=== PATIENT | male | born 1995 | race Caucasian/White ===

== ENCOUNTER 2019-12-21 20:39 | Emergency (ER) | payer OTHER ==
[2019-12-21] MEDS ORDERED: ACETAMINOPHEN 500 MG TAB ONE (21:34)
[2019-12-21] MEDS ORDERED: NA CHLORIDE 0.9% 2,000 ML ONE (21:37)
[2019-12-21] MEDS ORDERED: NA CHLORIDE 0.9% 500 ML ONE (21:37)
[2019-12-21 22:06] LABS: Absolute Lymphocytes (CBC) 0.9 K/uL (0.7-4.9); Basophils % 0.2 % (0-1.3); Hematocrit 43.1 % (39.6-49.0); Lymphocytes % 7.1 % (15.3-44.8); MPV 9.6 fL (7.6-11.3); RBC Red Blood Cell Count 5.06 M/uL (4.33-5.43)
[2019-12-21 22:08] LABS: ALT/SGPT 48 U/L (12-78); AST/SGOT 36 U/L (15-37); Albumin 3.7 g/dL (3.4-5.0); Alkaline Phosphatase 81 U/L (45-117); Amylase Level 33 U/L (25-115); BUN Blood Urea Nitrogen 15 mg/dL (7-18); Bicarbonate 26 mmol/L (21-32); Bilirubin Direct < 0.1 mg/dL (0-0.2); Bilirubin Total 0.3 mg/dL (0.2-1.0); CKMB Creatine Kinase MB < 1.0 ng/mL (0.3-3.6); Creatine Phosphokinase 188 U/L (39-308); Glucose Level 117 mg/dL (74-106); Lipase 63 U/L (73-393); Protein, Total 8.1 g/dL (6.4-8.2); Sodium Level 137 mmol/L (136-145)
[2019-12-21] MEDS ORDERED: CEFTRIAXONE/SWI 1gm 1 GM/10 ML SYR ONE (22:41)
[2019-12-21 23:04] LABS: Absolute Lymphocytes (CBC) 0.9 K/uL (0.7-4.9); Basophils % 0.3 % (0-1.3); Hematocrit 38.7 % (39.6-49.0); Lymphocytes % 7.3 % (15.3-44.8); RBC Red Blood Cell Count 4.53 M/uL (4.33-5.43)
--- NOTE | 2019-12-22 00:10 | EDPHYS ---
Physician Documentation [facility] Name: Kishor Pereira Age: 24 yrs Sex: Male : 1995 Arrival Date: 12/21/2019 Time: 20:45 Bed 20 Private MD: ED Physician Kevin German HPI: 12/20 21:33 This 24 yrs old Male presents to ER via Ambulatory with complaints of Fever. pkl 21:33 The patient reports fever, with an emergency department temperature of 103.1 degrees pkl Fahrenheit. Onset: The symptoms/episode began/occurred just prior to arrival, 3 hour(s) ago. Associated signs and symptoms: Pertinent positives: nasal congestion, Pertinent negatives: cough, shortness of breath. Patient dental a week ago, just completed a course of antibiotics and was going to start oral steroids tomorrow. Historical: - Allergies: 21:12 No Known Allergies; ca1 - Home Meds: 21:12 None [Active]; ca1 - PMHx: 21:12 None; ca1 - PSHx: 21:12 None; ca1 - Immunization history:: Adult Immunizations up to date. - Social history:: Smoking status: Patient denies any tobacco usage or history of. ROS: 21:33 Eyes: Negative for injury, pain, redness, and discharge, ENT: Negative for injury, pkl pain, and discharge, Neck: Negative for injury, pain, and swelling, Cardiovascular: Negative for chest pain, palpitations, and edema, Respiratory: Negative for shortness of breath, cough, wheezing, and pleuritic chest pain, Abdomen/GI: Negative for abdominal pain, nausea, vomiting, diarrhea, and constipation, Back: Negative for injury and pain, : Negative for injury, bleeding, discharge, and swelling, MS/Extremity: Negative for injury and deformity, Skin: Negative for injury, rash, and discoloration, Neuro: Negative for headache, weakness, numbness, tingling, and seizure. Exam: 21:38 Head/Face: Normocephalic, atraumatic. Eyes: Pupils equal round and reactive to light, pkl extra-ocular motions intact. Lids and lashes normal. Conjunctiva and sclera are non-icteric and not injected. Cornea within normal limits. Periorbital areas with no swelling, redness, or edema. ENT: Nares patent. No nasal discharge, no septal abnormalities noted. Tympanic membranes are normal and external auditory canals are clear. Oropharynx with no redness, swelling, or masses, exudates, or evidence of obstruction, uvula midline. Mucous membranes moist. Neck: Trachea midline, no thyromegaly or masses palpated, and no cervical lymphadenopathy. Supple, full range of motion without nuchal rigidity, or vertebral point tenderness. No Meningismus. Chest/axilla: Normal chest wall appearance and motion. Nontender with no deformity. No lesions are appreciated. Cardiovascular: Regular rate and rhythm with a normal S1 and S2. No gallops, murmurs, or rubs. Normal PMI, no JVD. No pulse deficits. Respiratory: Lungs have equal breath sounds bilaterally, clear to auscultation and percussion. No rales, rhonchi or wheezes noted. No increased work of breathing, no retractions or nasal flaring. Abdomen/GI: Soft, non-tender, with normal bowel sounds. No distension or tympany. No guarding or rebound. No evidence of tenderness throughout. Back: No spinal tenderness. No costovertebral tenderness. Full range of motion. Skin: Warm, dry with normal turgor. Normal color with no rashes, no lesions, and no evidence of cellulitis. MS/ Extremity: Pulses equal, no cyanosis. Neurovascular intact. Full, normal range of motion. Neuro: Awake and alert, GCS 15, oriented to person, place, time, and situation. Cranial nerves II-XII grossly intact. Motor strength 5/5 in all extremities. Sensory grossly intact. Cerebellar exam normal. Normal gait. Vital Signs: 21:00 BP 132 / 78; Pulse 122; Resp 17 S; Temp 103.1(O); Pulse Ox 99% on R/A; Weight 88.45 kg ca1 (R); Height 5 ft. 11 in. (180.34 cm) (R); Pain 0/10; 22:05 BP 130 / 69; Pulse 106; Resp 15 S; Temp 99.5(O); Pulse Ox 97% on R/A; ca1 23:00 BP 126 / 58; Pulse 101; Resp 16; Pulse Ox 97% on R/A; jb4 12/21 00:00 BP 123 / 66; Pulse 94; Resp 16; Temp 98.5; Pulse Ox 97% on R/A; jb4 12/20 21:00 Body Mass Index 27.20 (88.45 kg, 180.34 cm) ca1 MDM: 12/20 21:18 Patient medically screened. pkl 12/21 00:04 Data reviewed: vital signs, nurses notes, lab test result(s), EKG, radiologic studies, pkl plain films. ED course: Patient feeling better. Discussed lab. and imaging studies with patient. Advised to follow up with PCP and dentist in 2 to 3 days. Advised to stay at home until Covid 19 test is available. Patient understood instructions. 12/20 21:23 Order name: Amylase, Serum; Complete Time: 22:18 ca1 12/20 21:23 Order name: Basic Metabolic Panel; Complete Time: 22:18 ca1 12/20 21:23 Order name: Blood Culture Adult (2) ca1 12/20 21:23 Order name: CBC with Diff; Complete Time: 22:18 ca1 12/20 21:23 Order name: Ckmb; Complete Time: 22:18 ca1 12/20 21:23 Order name: CPK; Complete Time: 22:18 ca1 12/20 21:23 Order name: Lactate; Complete Time: 22:18 ca1 12/20 21:23 Order name: LFT's; Complete Time: 22:18 ca1 12/20 21:23 Order name: Lipase; Complete Time: 22:18 ca1 12/20 21:23 Order name: Procalcitonin; Complete Time: 22:18 ca1 12/20 21:23 Order name: Protime (+inr); Complete Time: 22:18 ca1 12/20 21:23 Order name: Ptt, Activated; Complete Time: 22:18 ca1 12/20 21:23 Order name: Strep; Complete Time: 22:24 ca1 12/20 21:23 Order name: Chest Single View XRAY ca1 12/20 21:23 Order name: Cardiac monitoring; Complete Time: 21:23 ca1 12/20 21:23 Order name: EKG - Nurse/Tech; Complete Time: 22: ca1 12/20 21:23 Order name: IV Saline Lock - Large Bore; Complete Time: 21:24 ca1 12/20 21:23 Order name: Labs collected and sent; Complete Time: 21:24 ca1 12/20 21:23 Order name: O2 Per Protocol; Complete Time: 21:24 ca1 12/20 21:23 Order name: O2 Sat Monitoring; Complete Time: 21:24 ca1 12/20 21:23 Order name: Urine Dipstick-Ancillary (obtain specimen); Complete Time: 00:07 ca1 12/20 21:23 Order name: Flu; Complete Time: 22:24 ca1 12/20 21:32 Order name: COVID-19 pkl 12/20 21:32 Order name: Document PUI#; Complete Time: 21:35 pkl 12/20 22:21 Order name: Throat Culture EDMS 12/20 22:26 Order name: CBC with Diff; Complete Time: 23:08 pkl 12/20 21:32 Order name: Droplet/Contact Precautions; Complete Time: 21:35 pkl 12/20 21:32 Order name: Notify Health Dept [phone]/ ; Complete Time: 21:35 pkl Administered Medications: 12/20 21:29 Drug: Tylenol 1000 mg Route: PO; ca1 22:09 Follow up: Response: No adverse reaction; Temperature is decreased ca1 21:29 Drug: NS 0.9% (30 ml/kg) 30 ml/kg Route: IV; Rate: bolus; Site: right antecubital; ca1 22:50 Follow up: Response: No adverse reaction; IV Status: Completed infusion; IV Intake: jb4 1500ml ; Provider decision to give only 1.5L due to Lactate being 0.9 and Procalcitonin being normal. 22:50 Drug: Rocephin - (cefTRIAXone) 1 grams {Note: Given IV push per pharmacy protocol.} jb4 Route: IVPB; Infused Over: 30 mins; Site: right antecubital; 22:55 Follow up: Response: No adverse reaction; IV Status: Completed infusion; IV Intake: [id number] Disposition: 12/22/19 00:09 Discharged to Home. Impression: Acute febrile illness. Leukocytosis. S/P dental surgery. - Condition is Stable. - Prescriptions for Clindamycin HCl 300 mg Oral Capsule - take 1 capsule by ORAL route every 6 hours for 7 days; 28 capsule. - Medication Reconciliation Form, Thank You Letter, Antibiotic Education, Prescription Opioid Use, Work release form form. - Follow up: Private Physician; When: 2 - 3 days; Reason: Re-evaluation by your physician. - Problem is new. - Symptoms have improved. Signatures: Dispatcher [employer] Kevin Matt MD MD pkl Tommy Borrero, RN RN jb4 Thania Vincent RN RN ca1 Corrections: (The following items were deleted from the chart) 12/21 00:34 00:09 12/22/2019 00:09 Discharged to Home. Impression: Acute febrile illness. jb4 Leukocytosis. S/P dental surgery. Condition is Stable. Forms are Medication Reconciliation Form, Thank You Letter, Antibiotic Education, Prescription Opioid Use. Follow up: Private Physician; When: 2 - 3 days; Reason: Re-evaluation by your physician. Problem is new. Symptoms have improved. pkl
--- NOTE | 2019-12-22 00:10 | ER ---
Nurse's Notes [facility] Name: Kishor Pereira Age: 24 yrs Sex: Male : 1995 Arrival Date: 12/21/2019 Time: 20:45 Bed 20 Private MD: Diagnosis: Acute febrile illness. Leukocytosis. S/P dental surgery Presentation: 12/20 21:00 Chief complaint: Patient states: Had dental surgery a week ago, was at the dentist ca1 today for a follow up check up. Completed a course of ABX post dental surgery and about to start steroids tomorrow prescribed by dentist. 3 hrs [employer], pt started having fever, reports nasal congestion. Denies SOB. Denies cough. Coronavirus screen: Proceed with normal triage. Patient denies a cough. Patient denies shortness of breath or difficulty breathing. Patient reports a measured and/or subjective temperature greater than 100.4F. Patient denies travel on a cruise ship or to a country the [facility] currently lists as an affected area. Patient denies contact with known and/or suspected case of COVID-19. Ebola Screen: Patient negative for fever greater than or equal to 101.5 degrees Fahrenheit, and additional compatible Ebola Virus Disease symptoms Patient denies exposure to infectious person. Patient denies travel to an Ebola-affected area in the 21 days before illness onset. No symptoms or risks identified at this time. Initial Sepsis Screen: Does the patient meet any 2 criteria? Temp <36.0*C (96.8*F)) or > 38.3*C (100.9*F). HR > 90 bpm. Yes Does the patient have a suspected source of infection? Yes: Skin breakdown/wound. Risk Assessment: Do you want to hurt yourself or someone else? Patient reports no desire to harm self or others. Onset of symptoms was December 21, 2019. 21:00 Method Of Arrival: Ambulatory ca1 21:00 Acuity: TOBIAS 2 ca1 Historical: - Allergies: 21:12 No Known Allergies; ca1 - Home Meds: 21:12 None [Active]; ca1 - PMHx: 21:12 None; ca1 - PSHx: 21:12 None; ca1 - Immunization history:: Adult Immunizations up to date. - Social history:: Smoking status: Patient denies any tobacco usage or history of. Screenin:13 Abuse screen: Denies threats or abuse. Denies injuries from another. Nutritional ca1 screening: No deficits noted. Tuberculosis screening: No symptoms or risk factors identified. Fall Risk IV access (20 points). Assessment: 21:13 General: Appears in no apparent distress. comfortable, Behavior is calm, cooperative, ca1 appropriate for age, Reports fever for 0-12 hours. Pain: Denies pain. Neuro: Level of Consciousness is awake, alert, obeys commands, Oriented to person, place, time, situation. Cardiovascular: Heart tones S1 S2 present Capillary refill < 3 seconds Patient's skin is warm and dry. Respiratory: Airway is patent Respiratory effort is even, unlabored, Respiratory pattern is regular, symmetrical, Breath sounds are clear bilaterally. GI: Abdomen is flat, non-distended, Bowel sounds present X 4 quads. Abd is soft and non tender X 4 quads. : No signs and/or symptoms were reported regarding the genitourinary system. EENT: Reports nasal congestion. Derm: Skin is intact, is healthy with good turgor, Skin is pink, warm \T\ dry. Musculoskeletal: Circulation, motion, and sensation intact. Capillary refill < 3 seconds. 22:05 Reassessment: Patient appears in no apparent distress at this time. Patient and/or ca1 family updated on plan of care and expected duration. Pain level reassessed. Patient is alert, oriented x 3, equal unlabored respirations, skin warm/dry/pink. 23:00 Reassessment: Patient appears in no apparent distress at this time. Patient and/or jb4 family updated on plan of care and expected duration. Pain level reassessed. Patient is alert, oriented x 3, equal unlabored respirations, skin warm/dry/pink. Patient states feeling better. 12/21 00:00 Reassessment: Patient appears in no apparent distress at this time. Patient and/or jb4 family updated on plan of care and expected duration. Pain level reassessed. Patient is alert, oriented x 3, equal unlabored respirations, skin warm/dry/pink. 00:28 Reassessment: Patient appears in no apparent distress at this time. Patient and/or jb4 family updated on plan of care and expected duration. Pain level reassessed. Patient is alert, oriented x 3, equal unlabored respirations, skin warm/dry/pink. PT verbalized understanding of d/c and follow up instructions. Denies questions or concerns. Given information on Covid-19. Vital Signs: 12/20 21:00 BP 132 / 78; Pulse 122; Resp 17 S; Temp 103.1(O); Pulse Ox 99% on R/A; Weight 88.45 kg ca1 (R); Height 5 ft. 11 in. (180.34 cm) (R); Pain 0/10; 22:05 BP 130 / 69; Pulse 106; Resp 15 S; Temp 99.5(O); Pulse Ox 97% on R/A; ca1 23:00 BP 126 / 58; Pulse 101; Resp 16; Pulse Ox 97% on R/A; jb4 12/21 00:00 BP 123 / 66; Pulse 94; Resp 16; Temp 98.5; Pulse Ox 97% on R/A; jb4 12/20 21:00 Body Mass Index 27.20 (88.45 kg, 180.34 cm) ca1 ED Course: 12/20 20:45 Patient arrived in ED. bp1 20:59 Thania Vincent, HSMUEL is Primary Nurse. ca1 21:10 Inserted saline lock: 20 gauge in right antecubital area, using aseptic technique. mt Blood collected. 21:10 First set of blood cultures drawn Flu and/or RSV swab sent to lab. Strep swab sent to pa lab. 21:11 Triage completed. ca1 21:12 Arm band placed on right wrist. ca1 21:13 Patient has correct armband on for positive identification. Placed in gown. Bed in low ca1 position. Call light in reach. Pulse ox on. NIBP on. 21:18 Kevin German MD is Attending Physician. pkl 21:32 Second set of blood cultures drawn by nj. mt 21:46 Chest Single View XRAY In Process Unspecified. EDMS 22:07 No provider procedures requiring assistance completed. ca1 22:19 Report given to SHMUEL Pa. ca1 12/21 00:32 IV discontinued, intact, bleeding controlled, No redness/swelling at site. Pressure jb4 dressing applied. Administered Medications: 12/20 21:29 Drug: Tylenol 1000 mg Route: PO; ca1 22:09 Follow up: Response: No adverse reaction; Temperature is decreased ca1 21:29 Drug: NS 0.9% (30 ml/kg) 30 ml/kg Route: IV; Rate: bolus; Site: right antecubital; ca1 22:50 Follow up: Response: No adverse reaction; IV Status: Completed infusion; IV Intake: jb4 1500ml ; Provider decision to give only 1.5L due to Lactate being 0.9 and Procalcitonin being normal. 22:50 Drug: Rocephin - (cefTRIAXone) 1 grams {Note: Given IV push per pharmacy protocol.} jb4 Route: IVPB; Infused Over: 30 mins; Site: right antecubital; 22:55 Follow up: Response: No adverse reaction; IV Status: Completed infusion; IV Intake: [id number] Intake: 22:50 IV: 1500ml; Total: 1500ml. jb4 22:55 IV: 10ml; Total: 1510ml. jb4 Outcome: 12/21 00:09 Discharge ordered by . pkshanel 00:32 Discharged to home ambulatory. jb4 00:32 Condition: stable 00:32 Discharge instructions given to patient, Instructed on discharge instructions, follow up and referral plans. medication usage, Demonstrated understanding of instructions, follow-up care, medications, Prescriptions given X 1. 00:34 Patient left the ED. jb4 Addendum: 12/26/2019 09:52 Addendum: Other Attempted to contact pt with negative COVID-19 swab results. Pt's mail d m5 box is full and I was unable to leave a message. Signatures: Dispatcher [facility] Susan Barth RN RN jazz5 Kevin German MD MD pkl Bryson, James, RN RN jb4 Ksenia Schilling pa Thania Vincent RN RN ca1 [facility] Corrections: (The following items were deleted from the chart) 12/20 21:36 21:24 Inserted saline lock: 20 gauge in right antecubital area, using aseptic mt technique. Blood collected. mt 22:05 21:00 Acuity: TOBIAS 3 ca1 ca1 12/21 00:31 00:00 BP 123 / 66; Pulse 94bpm; Resp 16bpm; Pulse Ox 97% RA; jb4 jb4
[2019-12-22 00:51] VITALS: O2SAT 97
[2019-12-22 00:54] VITALS: BP 123/66; TEMP 98.5
--- NOTE | 2019-12-22 09:38 | RAD REPORT ---
EXAM DESCRIPTION: RAD - Chest Single View - 12/21/2019 9:46 pm CLINICAL HISTORY: CONGESTION TECHNIQUE: AP portable chest image was obtained 12/21/2019 9:46 pm . FINDINGS: Lungs are clear. Heart and vasculature are normal. No measurable pleural effusion and no p neumothorax. No acute bony abnormality seen. No acute aortic findings suspected. IMPRESSION: No acute cardiopulmonary process.
--- NOTE | 2019-12-22 12:18 | EKG ---
Test Date: 2019-12-21 Test Time: 21:56:17 Director Supply Chain: KEISHA MEASUREMENT RESULTS: Intervals: Rate: 111 VA: 144 QRSD: 80 QT: 296 QTc: 402 [place]: P: 60 VA: 144 QRS: 82 T: 34 INTERPRETIVE STATEMENTS: Sinus tachycardia Possible Left atrial enlargement Borderline ECG No previous ECG available for comparison Electronically Signed On 12-22-19 12:17:39 CDT by Garfield Phoenix
== END 2019-12-22 00:34 | disposition home or self-care (01) ==
LOC: ER 20:39
DX: D72.829 Elevated white blood cell count, unspecified (principal); Z20.828 Contact with and (suspected) exposure to other viral communicable diseases; Z98.818 Other dental procedure status
CPT/HCPCS: 36415; 71045; 80048; 80076; 82150; 82550; 82553; 83605; 83690; 84145; 85025; 85610; 85730; 87040; 87070; 87081; 87804; 93005; 96365; 96375; 99284; J0696; J7030; J7040; U0001